=== PATIENT | female | born 1990 | race Caucasian/White ===

== ENCOUNTER 2018-03-26 17:21 | Inpatient (IN) | payer MEDICARE, OTHER ==
[~2018-03-26] VITALS: Ht 157.5 cm; Wt 69.9 kg
[2018-03-26 17:34] VITALS: BP_SYST 116
[2018-03-26 18:01] LABS: EOSINOPHILS # (AUTO) 0.2 K/uL (0.0-0.4); HEMATOCRIT 38.7 % (36-48); HEMOGLOBIN 13.1 g/dL (12.0-16.0); MEAN CORPUSCULAR HEMOGLOBIN 33 pg (27-31); MEAN CORPUSCULAR HGB CONC 34 % (32-36); MEAN CORPUSCULAR VOLUME 97 fL (79.0-98.0); MONOCYTES # (AUTO) 0.5 K/uL (0.0-1.0); PLATELET COUNT (AUTO) 301 K/uL (130-430); RED BLOOD CELL COUNT(AUTO) 3.99 MIL/uL (4.2-6.2); RED CELL DISTRIBUTION WIDTH 12.4 % (9.0-15.0); WHITE BLOOD COUNT (AUTO) 8.2 K/uL (4.8-10.8)
[2018-03-26 18:14] LABS: NEUTROPHILS # (AUTO) 4.5 K/uL (1.8-7.7)
[2018-03-26 18:16] LABS: CALCIUM 8.9 mg/dL (8.4-11.0); CREATININE 0.7 mg/dL (0.55-1.30); POTASSIUM 3.9 mmol/L (3.5-5.1)
[2018-03-26 18:22] LABS: TOTAL BILIRUBIN 0.4 mg/dL (0.0-1.0)
[2018-03-26 19:56] LABS: BILIRUBIN,URINE 1+ (NEGATIVE); BLOOD, URINE 3+ (NEGATIVE); CLARITY/URINE HAZY (CLEAR); COLOR,URINE YELLOW (YELLOW); GLUCOSE,URINE NEGATIVE (NEGATIVE); KETONES,URINE 3+ (NEGATIVE); LEUKOCYTE ESTERASE ,URINE 2+ (NEGATIVE); NITRITE, URINE NEGATIVE (NEGATIVE); PROTEIN URINE TRACE (NEGATIVE)
[2018-03-26] MEDS ORDERED: ONDANSETRON HCL 4 MG/2 ML VIAL IVP ONE (20:00)
[2018-03-26] MEDS ORDERED: KETOROLAC TROMETHAMINE 30 MG VIAL IVP ONE (20:00)
[2018-03-26] MEDS ORDERED: NACL 0.9% 1,000 ML IV ONE (20:00)
[2018-03-26 20:07] LABS: BACTERIA,URINE MODERATE /HPF (None Seen); MUCUS,URINE 3+ /LPF (None Seen); RBC,URINE 20-50 /HPF (0-3)
[2018-03-26] MEDS ORDERED: ONDANSETRON HCL 4 MG/2 ML VIAL ONE (20:36)
[2018-03-26] MEDS ORDERED: DIPHENHYDRAMINE INJ 50 MG/ML VIAL IVP ONE (21:30)
[2018-03-26] MEDS ORDERED: MORPHINE 4 MG/ML INJ. SYRINGE IVP ONE (21:30)
[2018-03-26] MEDS ORDERED: LEVOFLOXACIN 500 MG/D5W 100 ML IV ONE (22:15)
[2018-03-26 22:48] VITALS: BP_SYST 92
[2018-03-27] MEDS: D5NS 1,000 ML IV SCH ×3 (00:14→14:27)
[2018-03-27 00:30] VITALS: BP_SYST 103
[2018-03-27] MEDS: ONDANSETRON HCL 4 MG/2 ML VIAL IVP PRN ×4 (01:03→19:43)
[2018-03-27] MEDS: MORPHINE 2 MG/ML INJ. SYRINGE IVP PRN ×3 (01:03→22:08)
[2018-03-27] MEDS ORDERED: metroNIDAZOLE 500 mg/NS 100 ML IV ONE (01:54)
[2018-03-27] MEDS: metroNIDAZOLE 500 mg/NS 100 ML IV SCH ×4 (01:59→23:11)
[2018-03-27] MEDS: MORPHINE 4 MG/ML INJ. SYRINGE IVP PRN ×3 (07:43→19:50)
[2018-03-27 08:00] VITALS: BP_SYST 93
[2018-03-27 10:34] LABS: BARBITURATE, URINE NEGATIVE (NEG <=200); BENZODIAZEPINE, URINE NEGATIVE (NEG <=150); CANNABINOID, URINE NEGATIVE (NEG <=50); COCAINE, URINE NEGATIVE (NEG <=150); METHAMPHETAMINES SCREEN,URINE NEGATIVE (NEG <=500); OPIATE, URINE NEGATIVE (NEG <=100); PHENCYCLIDINE SCREEN,URINE NEGATIVE (NEG <=25); URINE AMPHETAMINE NEGATIVE (NEG <=500); URINE METHADONE NEGATIVE (NEG <=200); URINE OXYCODONE SCREEN NEGATIVE (NEG <=100); URINE PROPOXYPHENE SCREEN NEGATIVE (NEG <=300)
[2018-03-27 10:35] LABS: UR TRICYCLIC ANTIDEPRESSANTS NEGATIVE (NEG <=300)
[2018-03-27 20:00] VITALS: BP_SYST 120
[2018-03-27] MEDS: LEVOFLOXACIN 500 MG/D5W 100 ML IV SCH (21:55)
[2018-03-28] MEDS: MORPHINE 4 MG/ML INJ. SYRINGE IVP PRN ×4 (01:28→22:26)
[2018-03-28] MEDS: ONDANSETRON HCL 4 MG/2 ML VIAL IVP PRN ×2 (01:28→15:03)
[2018-03-28 01:51] VITALS: BP_SYST 91
[2018-03-28 05:30] VITALS: BP_SYST 113
[2018-03-28] MEDS: MORPHINE 2 MG/ML INJ. SYRINGE IVP PRN (05:35)
[2018-03-28] MEDS: metroNIDAZOLE 500 mg/NS 100 ML IV SCH ×3 (05:36→22:03)
[2018-03-28] MEDS: D5NS 1,000 ML IV SCH ×3 (05:36→12:37)
[2018-03-28] MEDS: ACETAMINOPHEN 325 MG TABLET PO PRN ×2 (08:14→18:08)
[2018-03-28 12:32] VITALS: BP_SYST 104
[2018-03-28 13:03] LABS: INR 1.2 (0.8-1.2); PROTHROMBIN TIME 11.7 SECS (9.5-12.5)
[2018-03-28 16:22] VITALS: BP_SYST 103
[2018-03-28 20:00] VITALS: BP_SYST 117
[2018-03-28] MEDS: LEVOFLOXACIN 500 MG/D5W 100 ML IV SCH (20:35)
[2018-03-28] MEDS: METOCLOPRAMIDE HCL 10 MG/2 ML VIAL IVP PRN (20:35)
[2018-03-29 00:49] VITALS: BP_SYST 106
[2018-03-29] MEDS: D5NS 1,000 ML IV SCH ×4 (02:46→21:46)
[2018-03-29] MEDS: metroNIDAZOLE 500 mg/NS 100 ML IV SCH ×3 (05:10→21:46)
[2018-03-29 08:00] VITALS: BP_SYST 111
[2018-03-29] MEDS: MORPHINE 2 MG/ML INJ. SYRINGE IVP PRN ×3 (08:25→21:47)
[2018-03-29] MEDS: METOCLOPRAMIDE HCL 10 MG/2 ML VIAL IVP PRN (08:25)
[2018-03-29 11:29] LABS: CALCIUM 8.4 mg/dL (8.4-11.0); CREATININE 0.61 mg/dL (0.55-1.30); POTASSIUM 4.1 mmol/L (3.5-5.1)
[2018-03-29 11:36] LABS: ALBUMIN 3.3 g/dL (3.4-4.8); TOTAL BILIRUBIN 0.6 mg/dL (0.0-1.0)
[2018-03-29 12:28] VITALS: BP_SYST 113
[2018-03-29] MEDS ORDERED: METOCLOPRAMIDE HCL 10 MG/2 ML VIAL IVP PRN (13:30)
[2018-03-29] MEDS ORDERED: KETOROLAC TROMETHAMINE 30 MG VIAL IVP PRN (13:30)
[2018-03-29] MEDS ORDERED: fentaNYL CITRATE/PF 100 MCG/2 ML AMP IVP PRN ×2 (13:30)
[2018-03-29] MEDS: fentaNYL CITRATE/PF 100 MCG/2 ML AMP ONE ×2 (14:30→15:05)
[2018-03-29 20:00] VITALS: BP_SYST 125
[2018-03-29] MEDS: LEVOFLOXACIN 500 MG/D5W 100 ML IV SCH (20:29)
[2018-03-29] MEDS: MORPHINE 4 MG/ML INJ. SYRINGE IVP PRN (23:28)
[2018-03-30 00:35] VITALS: BP_SYST 126
[2018-03-30] MEDS: MORPHINE 4 MG/ML INJ. SYRINGE IVP PRN (03:27)
[2018-03-30 03:30] VITALS: BP_SYST 122
[2018-03-30] MEDS: D5NS 1,000 ML IV SCH (05:04)
[2018-03-30] MEDS: metroNIDAZOLE 500 mg/NS 100 ML IV SCH ×2 (05:04→13:41)
[2018-03-30] MEDS: MORPHINE 2 MG/ML INJ. SYRINGE IVP PRN (08:41)
[2018-03-30 12:48] VITALS: BP_SYST 134
[2018-03-30] MEDS ORDERED: NS 1000 ML BAG IV ONE (12:50)
[2018-03-30] MEDS ORDERED: BUPIVACAINE /EPINEPHRINE/PF 0.5% 30 ML VIAL INJ ONE (12:50)
[2018-03-30] MEDS ORDERED: KETOROLAC TROMETHAMINE 30 MG VIAL IVP ONE (12:50)
[2018-03-30] MEDS ORDERED: fentaNYL CITRATE/PF 100 MCG/2 ML AMP IVP ONE (12:50)
[2018-03-30] MEDS ORDERED: ROCURONIUM BROMIDE 10 MG/ML (ZEMURON) IV ONE (12:50)
[2018-03-30] MEDS ORDERED: NS IRRIG SOLN 1000 ML IR ONE (12:50)
[2018-03-30] MEDS ORDERED: SEVOFLURANE 15 MIN GAS INH ONE (12:50)
[2018-03-30] MEDS ORDERED: LR 1,000 ML IV.SOLN IV ONE (12:50)
[2018-03-30] MEDS ORDERED: ONDANSETRON HCL 4 MG/2 ML VIAL IVP ONE (12:50)
[2018-03-30] MEDS ORDERED: NEOSTIGMINE METHYLSULFATE 1 MG/ML, 10 ML VIAL IVP ONE (12:50)
[2018-03-30] MEDS ORDERED: GLYCOPYRROLATE 0.2 MG/ML VIAL IJ ONE (12:50)
[2018-03-30] MEDS ORDERED: MIDAZOLAM HCL 5 MG/5 ML VIAL IVP ONE (12:50)
[2018-03-30] MEDS ORDERED: PROPOFOL 200MG/ 20ML VIAL (DIPRIVAN) IV ONE (12:50)
[2018-03-30] MEDS ORDERED: METR500T PO (14:43)
[2018-03-30] MEDS ORDERED: LEVO500T20 PO (14:43)
[2018-03-30] MEDS ORDERED: IBUP-1480 PO (14:44)
[2018-03-30 15:55] VITALS: BP_SYST 134
[2018-03-30 16:49] VITALS: BP_SYST 127
== END 2018-03-30 16:35 | disposition home or self-care (01) | DRG 263 ==
LOC: SED 17:21 → SMU 22:36
PROVIDERS: ADMIT Internal Medicine Hospice and Palliative Medicine; ATTEND Internal Medicine Hospice and Palliative Medicine
PROC: 0FT44ZZ Resection of Gallbladder, Percutaneous Endoscopic Approach (ICD-10-PCS; principal; 2018-03-29 13:00)
DX: K80.10 Calculus of gallbladder with chronic cholecystitis without obstruction (principal); F10.21 Alcohol dependence, in remission; F17.210 Nicotine dependence, cigarettes, uncomplicated; Z88.8 Allergy status to other drugs, medicaments and biological substances; Z98.51 Tubal ligation status; Z80.8 Family history of malignant neoplasm of other organs or systems
CPT/HCPCS: 36415; 76700-TC; 78226; 80053; 80307; 81000-TC; 81025; 83690-TC; 84702-TC; 85025; 85610-TC; 85730-TC; 87040-TC; 87081; 87086; 88304; 96361; 96365; 96375; 99285; A9537; J1200; J1885; J1956; J2250; J2270; J2405; J2704; J2710; J2765; J3010; J3490; J7030; J7042; J7120

== ENCOUNTER 2018-07-31 10:51 | Emergency (ER) | payer OTHER ==
[~2018-07-31] VITALS: Ht 157.5 cm; Wt 63.5 kg
[~2018-07-31 10:51] MED LIST: IBUP-1971 PO; LEVO500T20 PO; METR500T PO
[2018-07-31 10:55] VITALS: BP_SYST 130
--- NOTE | 2018-07-31 11:06 | NUR ---
Patient to ER bed 6 to gown for evaluation. Side rails up. Report given to Nayely MARIA.
--- NOTE | 2018-07-31 11:15 | NUR ---
PT STATES LOWER ABD PAIN RADIATING TO EPIGASTRIC AREA FOR LAST 3 DAYS WITH VOMITING OFF AND ON FOR LAST 4 DAYS. TAKING MOTRIN FOR PAIN WITH SOME RELIEF.
--- NOTE | 2018-07-31 11:20 | NUR ---
DR SWEET AT BEDSIDE FOR EVALUATION.
[2018-07-31 11:26] LABS: MEAN CORPUSCULAR HGB CONC 33 % (32-36)
[2018-07-31 11:35] LABS: BASOPHILS # (AUTO) 0.1 K/uL (0.0-0.2); BASOPHILS % (AUTO) 0.7 % (0.0-2.0); EOSINOPHILS # (AUTO) 0.2 K/uL (0.0-0.4); EOSINOPHILS % (AUTO) 2.3 % (0.0-4.0); LYMPHOCYTES # (AUTO) 2.1 K/uL (1.0-5.5); LYMPHOCYTES % (AUTO) 24.5 % (20.5-51.5); MONOCYTES # (AUTO) 0.5 K/uL (0.0-1.0); MONOCYTES % (AUTO) 5.6 % (1.7-9.3); NEUTROPHILS # (AUTO) 5.8 K/uL (1.8-7.7); NEUTROPHILS % (AUTO) 66.9 % (40.0-70.0)
[2018-07-31 11:36] LABS: HEMATOCRIT 38.6 % (36-48); HEMOGLOBIN 12.9 g/dL (12.0-16.0); MEAN CORPUSCULAR HEMOGLOBIN 32 pg (27-31); MEAN CORPUSCULAR VOLUME 95 fL (79.0-98.0); PLATELET COUNT (AUTO) 309 K/uL (130-430); RED BLOOD CELL COUNT(AUTO) 4.05 MIL/uL (4.2-6.2); RED CELL DISTRIBUTION WIDTH 13.6 % (9.0-15.0); WHITE BLOOD COUNT (AUTO) 8.7 K/uL (4.8-10.8)
[2018-07-31 11:44] LABS: CALCIUM 9.2 mg/dL (8.4-11.0); CREATININE 0.63 mg/dL (0.55-1.30); POTASSIUM 4.1 mmol/L (3.5-5.1)
[2018-07-31 11:49] LABS: ALBUMIN 3.8 g/dL (3.4-4.8); TOTAL BILIRUBIN 0.4 mg/dL (0.0-1.0)
[2018-07-31 12:02] LABS: BILIRUBIN,URINE NEGATIVE (NEGATIVE); BLOOD, URINE NEGATIVE (NEGATIVE); CLARITY/URINE SL HAZY (CLEAR); COLOR,URINE YELLOW (YELLOW); GLUCOSE,URINE NEGATIVE (NEGATIVE); KETONES,URINE NEGATIVE (NEGATIVE); LEUKOCYTE ESTERASE ,URINE 3+ (NEGATIVE); NITRITE, URINE NEGATIVE (NEGATIVE); PROTEIN URINE NEGATIVE (NEGATIVE); UROBILINOGEN,URINE 0.2 (0.2-1.0)
[2018-07-31] MEDS ORDERED: NACL 0.9% 1,000 ML IV ONE (12:04)
[2018-07-31 12:12] LABS: BACTERIA,URINE MODERATE /HPF (None Seen); MUCUS,URINE 1+ /LPF (None Seen); RBC,URINE 0-3 /HPF (0-3)
[2018-07-31] MEDS ORDERED: MORPHINE 2 MG/ML INJ. SYRINGE IVP ONE (12:15)
[2018-07-31] MEDS ORDERED: ONDANSETRON HCL 4 MG/2 ML VIAL IVP ONE (12:15)
--- NOTE | 2018-07-31 13:13 | NUR ---
Pt medicated as ordered, well tolerated, VS WNL.
--- NOTE | 2018-07-31 13:45 | NUR ---
Pt resting on gurney, no signs of distress at the moment, will continue to monitor.
--- NOTE | 2018-07-31 14:30 | NUR ---
Pt resting on gurney, no signs of distress at the moment, will continue to monitor.
--- NOTE | 2018-07-31 15:30 | NUR ---
Pt resting on gurney, no signs of distress at the moment, will continue to monitor.
--- NOTE | 2018-07-31 16:00 | NUR ---
Dr. Ervin at bedside speaking with pt discussing lab and diagnostic results.
[2018-07-31 16:20] VITALS: BP_SYST 130
--- NOTE | 2018-07-31 16:20 | NUR ---
Patient given written and verbal discharge instructions and verbalizes understanding. ER MD discussed with patient the results and treatment provided. Patient in stable condition. ID arm band removed. IV catheter removed intact and dressing applied, no active bleeding. Rx of Pepcid & Ultram given. Patient educated on pain management and to follow up with PMD. Pain Scale 0/10. Opportunity for questions provided and answered. Medication side effect fact sheet provided.
== END 2018-07-31 16:20 | disposition home or self-care (01) ==
LOC: SED 10:51
DX: K29.70 Gastritis, unspecified, without bleeding (principal); K21.9 Gastro-esophageal reflux disease without esophagitis; Z90.49 Acquired absence of other specified parts of digestive tract; Z98.890 Other specified postprocedural states; Z79.899 Other long term (current) drug therapy; Z88.1 Allergy status to other antibiotic agents
CPT/HCPCS: 36415; 80053; 81000; 81025; 83690; 85025; 87086; 96361; 96374; 96375; 99284; J2270; J2405; J7030